=== PATIENT | male | born 1970 | race Caucasian/White ===

== ENCOUNTER 2019-10-06 10:22 | Inpatient (IN) | payer OTHER ==
[2019-10-21] MEDS ORDERED: CLONAZEPAM0.5 MG PO (16:08)
[2019-10-21] MEDS ORDERED: AMITRIPTYLINE H10 MG PO (16:08)
[2019-10-21] MEDS ORDERED: RESTORIL30 MG PO (16:08)
[2019-10-21] MEDS ORDERED: SERTRALINE HCL100 MG PO (16:09)
== END 2019-10-25 15:00 | disposition home or self-care (01) | DRG 331 ==
LOC: ADM 10-15 08:45 → O/R 10-21 06:00 → AMB-ENDOS 10-21 06:49 → EDSTATUS 10-21 08:45 → AMB-ENDOS 10-21 08:45 → O/R 10-25 15:00 → AMB-ENDOS 10-25 15:20
PROVIDERS: ADMIT Colon & Rectal Surgery
PROC: 0DTN4ZZ Resection of Sigmoid Colon, Percutaneous Endoscopic Approach (ICD-10-PCS; principal; 2019-10-21)
PROC: 07TB4ZZ Resection of Mesenteric Lymphatic, Percutaneous Endoscopic Approach (ICD-10-PCS; 2019-10-21)
PROC: 0DBK8ZX Excision of Ascending Colon, Via Natural or Artificial Opening Endoscopic, Diagnostic (ICD-10-PCS; 2019-10-21)
PROC: 0DBM8ZX Excision of Descending Colon, Via Natural or Artificial Opening Endoscopic, Diagnostic (ICD-10-PCS; 2019-10-21)
PROC: 0DJD8ZZ Inspection of Lower Intestinal Tract, Via Natural or Artificial Opening Endoscopic (ICD-10-PCS; 2019-10-21)
DX: C19 Malignant neoplasm of rectosigmoid junction (principal); D12.2 Benign neoplasm of ascending colon; D12.4 Benign neoplasm of descending colon; K63.89 Other specified diseases of intestine